=== PATIENT | female | born 2000 | race Caucasian/White ===

== ENCOUNTER 2019-11-02 20:15 | Emergency (ER) | payer OTHER ==
--- NOTE | 2019-11-02 21:04 | ER Document Report ---
ED Medical Screen (RME) - General Chief Complaint: Vaginal Pain Stated Complaint: POSSIBLE ALLERGIC REACTION Time Seen by Provider: 11/02/19 21:02 Mode of Arrival: Ambulatory Information source: Patient Notes: 19-year-old female presented to ED for complaint of vaginal pain and swelling for the last hour. She states she used a vaginal suppository made by [facility] for lubrication. She states she is never used it before. She states that soon after inserting the suppository she started having pain burning and swelling. She states it is very swollen in the area. Patient is alert oriented resp irations regular and unlabored speaking in full sentences. She states she does not smoke cigarettes but she does state she occasionally drinks and does not use any illicit drugs. I have greeted and performed a rapid initial assessment of this patient. A comprehensive ED assessment and evaluation of the patient, analysis of test results and completion of medical decision making process will be conducted by an additional ED providers. - Related Data Allergies/Adverse Reactions: Sulfa (Sulfonamide Antibiotics) Allergy (Unknown, Verified 11/02/19 20:58) Physical Exam - Vital signs Vitals: Temp Pulse Resp BP Pulse Ox 98.1 F 118 H 16 120/87 H 97 11/02/19 20:20 11/02/19 20:20 11/02/19 20:20 11/02/19 20:20 11/02/19 20:20 Course - Vital Signs Vital signs: Temp Pulse Resp BP Pulse Ox 98.1 F 118 H 16 120/87 H 97 11/02/19 20:20 11/02/19 20:20 11/02/19 20:20 11/02/19 20:20 11/02/19 20:20
[2019-11-02 21:43] LABS: APPEARANCE,URINE CLEAR; BILIRUBIN,URINE NEGATIVE (NEGATIVE); COLOR,URINE YELLOW; GLUCOSE, URINE NEGATIVE (NEGATIVE); KETONES,URINE NEGATIVE (NEGATIVE); LEUKOCYTE ESTERASE,URINE TRACE (NEGATIVE); NITRITE,URINE NEGATIVE (NEGATIVE); PROTEIN,URINE NEGATIVE (NEGATIVE); URINE SPECIFIC GRAVITY 1.019; UROBILINOGEN,URINE NEGATIVE mg/dL (<2.0)
--- NOTE | 2019-11-02 22:08 | ER Document Report ---
ED General - General Chief Complaint: Vaginal Pain Stated Complaint: POSSIBLE ALLERGIC REACTION Time Seen by Provider: 11/02/19 21:02 Mode of Arrival: Ambulatory Information source: Patient Notes: francisco blackburn pt comes to ed from home via pov brought by self for c/o sudden onset vaginal burning, redness and swelling. 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 hx of allergy to latex. maddison notes 19-year-old female presented to ED for complaint of vaginal pain and swelling for the last hour. She states she used a vaginal suppository made by [place] for lubrication. She states she is never used it before. She states that soon after inserting the suppository she started having pain burning and swelling. She states it is very swollen in the area. Patient is alert oriented respirations regular and unlabored speaking in full sentences. She states she does not smoke cigarettes but she does state she occasionally drinks and does not use any illicit drugs. 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 She has never had any problems with [place] jelly but believes the suppository had a latex component. TRAVEL OUTSIDE OF THE [place] IN LAST 30 DAYS: No - HPI Onset: Just prior to arrival - Related Data Allergies/Adverse Reactions: Sulfa (Sulfonamide Antibiotics) Allergy (Unknown, Verified 11/02/19 20:58) Home Medications: sertraline Past Medical History - General Information source: Patient - Social History Smoking Status: Former Smoker Cigarette use (# per day): No Chew tobacco use (# tins/day): No Smoking Education Provided: No Frequency of alcohol use: Occasional Drug Abuse: None Lives with: Family Family History: Reviewed & Not Pertinent Patient has suicidal ideation: No Patient has homicidal ideation: No Psychiatric Medical History: Reports: Hx Depression Review of Systems - Review of Systems Constitutional: No symptoms reported EENT: No symptoms reported Cardiovascular: No symptoms reported Respiratory: No symptoms reported Gastrointestinal: No symptoms reported Genitourinary: See HPI, Burning, Other - pudenal rash Female Genitourinary: No symptoms reported Musculoskeletal: No symptoms reported Skin: No symptoms reported Hematologic/Lymphatic: No symptoms reported Neurological/Psychological: No symptoms reported Physical Exam - Vital signs Vitals: Temp Pulse Resp BP Pulse Ox 98.1 F 118 H 16 120/87 H 97 11/02/19 20:20 11/02/19 20:20 11/02/19 20:20 11/02/19 20:20 11/02/19 20:20 - General General appearance: Appears well, Alert - HEENT Head: Normocephalic, Atraumatic Eyes: Normal Pupils: PERRL - Respiratory Respiratory status: No respiratory distress Chest status: Nontender Breath sounds: Normal Chest palpation: Normal - Cardiovascular Rhythm: Regular Heart sounds: Normal auscultation Murmur: No - Abdominal Inspection: Normal Distension: No distension Bowel sounds: Normal Tenderness: Nontender Organomegaly: No organomegaly - Genitourinary External exam: Other - examined with CLINICAL SYSTEMS ANALYST female Oxana is pudendal's with contact dermatitis extending at least 9 cm to the perirectal area. - Back Back: Normal, Nontender - Extremities General upper extremity: Normal inspection, Nontender, Normal color, Normal ROM, Normal temperature General lower extremity: Normal inspection, Nontender, Normal color, Normal ROM, Normal temperature, Normal weight bearing. No: Soraya's sign - Neurological Neuro grossly intact: Yes Cognition: Normal Orientation: AAOx4 [place] Coma Scale Eye Opening: Spontaneous [place] Coma Scale Verbal: Oriented Scarlet Coma Scale Motor: Obeys Commands [place] Coma Scale Total: 15 Speech: Normal Motor strength normal: LUE, RUE, LLE, RLE Sensory: Normal - Psychological Associated symptoms: Normal affect - Skin Skin Temperature: Warm Skin Moisture: Dry Skin Color: Normal Course - Vital Signs Vital signs: Temp Pulse Resp BP Pulse Ox 98.1 F 118 H 16 120/87 H 97 11/02/19 20:59 11/02/19 20:20 11/02/19 20:20 11/02/19 20:20 11/02/19 20:20 - Laboratory Laboratory results interpreted by me: 11/02/19 21:08 Urine Blood MODERATE H Ur Leukocyte Esterase TRACE H Critical Care Note - Critical Care Note Total time excluding time spent on procedures (mins): 60 Discharge - Discharge Clinical Impression: Vaginitis and vulvovaginitis Allergic contact dermatitis Qualifiers: Contact dermatitis trigger: other chemical product Qualified Code(s): L23.5 - Allergic contact dermatitis due to other chemical products Condition: Good Disposition: HOME, SELF-CARE Additional Instructions: Do not apply heat or warm compresses to your private areas. Use cool but not icy cold wet compresses to help alleviate irritated dermatitis skin. Also apply BEAUTY SPECIALIST Lotrimin and hydrocortisone cream to affected skin at least twice to 3 times a day. Take other oral medicines as prescribed. See personal doctor or material crew supervisor if symptoms persist and you may want to use a Band-Aid type K-Y jelly plain onto your skin prior to any use in the future. You may experience some steroid induced depression or excitation or increase in appetite while taking steroids. Prescriptions: Diphenhydramine HCl [Benadryl] 25 mg PO TID 3 Days #1 bottle Dexamethasone [Decadron 4 Mg Tablet] 4 mg PO DAILY 4 Days #4 tablet Famotidine [Pepcid 20 mg Tablet] 20 mg PO BID #12 tablet Forms: Return to Work
[2019-11-02] MEDS ORDERED: CLOTRIMAZOLE/BETAMETHASONE DIP CREAM 15 GM TOP ONE (22:31)
[2019-11-02] MEDS ORDERED: DIPHENHYDRAMINE HCL 50 MG/ML VIAL IM ONE (22:33)
[2019-11-02] MEDS ORDERED: DEXAMETHASONE SOD PHOS INJ 10 MG/1 ML VIAL IM ONE (22:33)
[2019-11-02] MEDS ORDERED: FAMOTIDINE 20 MG TABLET PO ONE (22:34)
[2019-11-02] MEDS ORDERED: DIPHENHYDRAMINE HCL 25 MG/10 ML UDC PO ONE (23:11)
[2019-11-02] MEDS ORDERED: CLOTRIMAZOLE 1% CREAM 15 GM ONE (23:25)
[2019-11-02 23:40] VITALS: BP 127/81
== END 2019-11-02 23:41 | disposition home or self-care (01) ==
LOC: ER 20:15
DX: N76.0 Acute vaginitis (principal); L23.5 Allergic contact dermatitis due to other chemical products; R10.2 Pelvic and perineal pain; Z88.2 Allergy status to sulfonamides; Z87.891 Personal history of nicotine dependence
CPT/HCPCS: 99285; 96372; 81025; 81001; J3490 ×2; J1200; J1100

== ENCOUNTER 2019-11-06 00:22 | Emergency (ER) | payer OTHER ==
--- NOTE | 2019-11-06 01:00 | ER Document Report ---
ED GI/ - General Chief Complaint: Lower Abdominal Pain Stated Complaint: ABDOMINAL PAIN Time Seen by Provider: 11/06/19 00:53 Primary Care Provider: DIDIER ALFONSO DO [Primary Care Provider] - Follow up as needed Notes: Otherwise healthy 19-year-old female presenting to the emergency department with chief complaint of intermittent low abdominal pain that has been ongoing for 2 weeks. Patient reports associated nausea and lack of appetite. Patient reports she has a Nexplanon control device in her arm but she thinks she could be . Patient has had one episode of vomiting today, she reports excessive nausea. She states the pain is in the low abdomen and radiates back and forth from the right to left side. She describes it as quick sharp stabbing pains that resolve on their own. She denies any constipation. She was recently seen here and treated for an allergic reaction to a vaginal lubricant. TRAVEL OUTSIDE OF THE [place] IN LAST 30 DAYS: No - Related Data Allergies/Adverse Reactions: Sulfa (Sulfonamide Antibiotics) Allergy (Unknown, Verified 11/02/19 20:58) Home Medications: famotidine, steroid, setraline, Past Medical History - General Information source: Patient - Social History Smoking Status: Current Every Day Smoker Frequency of alcohol use: None Drug Abuse: None Family History: Reviewed & Not Pertinent Patient has homicidal ideation: No Psychiatric Medical History: Reports: Hx Anxiety, Hx Depression, Hx Post Traumatic Stress Disorder Surgical Hx: Negative - Immunizations Immunizations up to date: Yes Review of Systems - Review of Systems Constitutional: denies: Fever Gastrointestinal: Abdominal pain, Nausea, Vomiting - X1 Genitourinary: denies: Dysuria, Frequency, Flank pain Female Genitourinary: denies: Vaginal discharge -: Yes All other systems reviewed and negative Physical Exam - Vital signs Vitals: Temp Pulse Resp BP Pulse Ox 97.9 F 81 24 H 139/89 H 98 11/06/19 00:29 11/06/19 00:29 11/06/19 00:29 11/06/19 00:29 11/06/19 00:29 - Notes Notes: PHYSICAL EXAMINATION: GENERAL: Well-appearing, well-nourished and in no acute distress. HEAD: Atraumatic, normocephalic. EYES: Pupils equal round and reactive to light, extraocular movements intact, conjunctiva are normal. ENT: Nares patent, oropharynx clear without exudates. Moist mucous membranes. NECK: Normal range of motion, supple without lymphadenopathy LUNGS: Breath sounds clear to auscultation bilaterally and equal. No wheezes rales or rhonchi. HEART: Regular rate and rhythm without murmurs ABDOMEN: Soft, nontender, nondistended abdomen. No guarding, no rebound. No masses appreciated. Female : Normal external genitalia. Thin white vaginal discharge noted. No bleeding. Cervix closed, no cervical motion tenderness or adnexal tenderness. Musculoskeletal: Normal range of motion, no pitting or edema. No cyanosis. NEUROLOGICAL: Cranial nerves grossly intact. Normal speech, normal gait. Normal sensory, motor exams PSYCH: Normal mood, normal affect. SKIN: Warm, Dry, normal turgor, no rashes or lesions noted. Course - Re-evaluation Re-evalutation: Laboratory 11/06/19 11/06/19 11/06/19 01:05 02:00 02:00 WBC 14.7 H RBC 5.01 Hgb 14.8 Hct 43.3 MCV 87 MCH 29.6 MCHC 34.2 RDW 13.6 Plt Count 319 Lymph % (Auto) 22.4 Williams % (Auto) 8.4 Eos % (Auto) 0.1 Baso % (Auto) 0.2 Absolute Neuts (auto) 10.1 H Absolute Lymphs (auto) 3.3 Absolute Monos (auto) 1.2 Absolute Eos (auto) 0.0 Absolute Basos (auto) 0.0 Seg Neutrophils % 68.9 Sodium 139.2 Potassium 3.8 Chloride 108 H Carbon Dioxide 22 Anion Gap 9 BUN 15 Creatinine 0.58 Est GFR ( Amer) > 60 Est GFR (MDRD) Non-Af > 60 Glucose 175 H Calcium 9.4 Total Bilirubin 0.3 Direct Bilirubin 0.0 Neonat Total Bilirubin Not Reportable Neonat Direct Bilirubin Not Reportable Neonat Indirect Bili Not Reportable AST 22 ALT 14 Alkaline Phosphatase 88 Total Protein 7.6 Albumin 4.1 Lipase 116.6 Urine Color YELLOW Urine Appearance CLEAR Urine pH 6.0 Ur Specific [place] 1.014 Urine Protein NEGATIVE Urine Glucose (UA) NEGATIVE Urine Ketones NEGATIVE Urine Blood MODERATE H Urine Nitrite (Reflex) NEGATIVE Urine Bilirubin NEGATIVE Urine Urobilinogen NEGATIVE Leukocyte Esterase Rfl LARGE H Urine RBC (Auto) 6 U Hyaline Cast (Auto) 1 Urine WBC (Reflex) 10 Squamous Epi Cells Auto 1 Urine Mucus (Auto) RARE Urine Ascorbic Acid NEGATIVE Urine HCG, Qual NEGATIVE Trichomonas (Wet Prep) Vaginal WBC Vaginal RBC Vaginal Yeast Chlamydia DNA (PCR) N.gonorrhoeae DNA (PCR) 11/06/19 11/06/19 02:00 02:00 WBC RBC Hgb Hct MCV MCH MCHC RDW Plt Count Lymph % (Auto) Williams % (Auto) Eos % (Auto) Baso % (Auto) Absolute Neuts (auto) Absolute Lymphs (auto) Absolute Monos (auto) Absolute Eos (auto) Absolute Basos (auto) Seg Neutrophils % Sodium Potassium Chloride Carbon Dioxide Anion Gap BUN Creatinine Est GFR ( Amer) Est GFR (MDRD) Non-Af Glucose Calcium Total Bilirubin Direct Bilirubin Neonat Total Bilirubin Neonat Direct Bilirubin Neonat Indirect Bili AST ALT Alkaline Phosphatase Total Protein Albumin Lipase Urine Color Urine Appearance Urine pH Ur Specific [place] Urine Protein Urine Glucose (UA) Urine Ketones Urine Blood Urine Nitrite (Reflex) Urine Bilirubin Urine Urobilinogen Leukocyte Esterase Rfl Urine RBC (Auto) U Hyaline Cast (Auto) Urine WBC (Reflex) Squamous Epi Cells Auto Urine Mucus (Auto) Urine Ascorbic Acid Urine HCG, Qual Trichomonas (Wet Prep) NO TRICHOMONAS SEEN Vaginal WBC 4+ WBCS SEEN Vaginal RBC FEW RBCS SEEN Vaginal Yeast NO YEAST SEEN Chlamydia DNA (PCR) NOT DETECTED N.gonorrhoeae DNA (PCR) NOT DETECTED Patient appears well, nontoxic. Vital signs within normal limits. Vaginal exam unremarkable. Patient does have an elevated white blood count however she is on Decadron tablets daily for her recent allergic reaction. Her abdomen is soft and nontender. She does have some white blood cells in her urine, we will send this for culture. Wet mount was negative. - Vital Signs Vital signs: Temp Pulse Resp BP Pulse Ox 98.2 F 64 16 112/65 98 11/06/19 02:37 11/06/19 02:37 11/06/19 02:37 11/06/19 02:37 11/06/19 02:37 - Laboratory Result Diagrams: 11/06/19 02:00 11/06/19 02:00 Laboratory results interpreted by me: 11/06/19 11/06/19 11/06/19 01:05 02:00 02:00 WBC 14.7 H Absolute Neuts (auto) 10.1 H Chloride 108 H Glucose 175 H Urine Blood MODERATE H Leukocyte Esterase Rfl LARGE H Discharge - Discharge Clinical Impression: Abdominal pain Qualifiers: Abdominal location: lower abdomen, unspecified Qualified Code(s): R10.30 - Lower abdominal pain, unspecified Condition: Stable Disposition: HOME, SELF-CARE Additional Instructions: You have been seen in the Emergency Department (ED) for abdominal pain. Your evaluation did not identify a clear cause of your symptoms but was generally reassuring. Please follow up with your doctor as soon as possible regarding today's emergent visit and the symptoms that are bothering you. Return to the ED if your abdominal pain worsens or fails to improve, you develop bloody vomiting, bloody diarrhea, you are unable to tolerate fluids due to vomiting, fever greater than 101, or other symptoms that concern you. Prescriptions: Ondansetron [Zofran Odt 4 mg Tablet] 1 - 2 tab PO Q4H PRN #15 tab.rapdis PRN Reason: For Nausea/Vomiting Referrals: DIDIER ALFONSO DO [Primary Care Provider] - Follow up as needed
[2019-11-06] MEDS ORDERED: ONDANSETRON 4 MG TAB.RAPDIS PO ONE (01:20)
[2019-11-06 01:35] LABS: APPEARANCE,URINE CLEAR; BILIRUBIN,URINE NEGATIVE (NEGATIVE); COLOR,URINE YELLOW; GLUCOSE, URINE NEGATIVE (NEGATIVE); KETONES,URINE NEGATIVE (NEGATIVE); PROTEIN,URINE NEGATIVE (NEGATIVE); URINE SPECIFIC GRAVITY 1.014; UROBILINOGEN,URINE NEGATIVE mg/dL (<2.0)
[2019-11-06 02:30] LABS: RBCS (WET MOUNT) FEW RBCS SEEN; T.VAGINALIS (WET MOUNT) NO TRICHOMONAS SEEN; WBCS (WET MOUNT) 4+ WBCS SEEN; YEAST (WET MOUNT) NO YEAST SEEN
[2019-11-06 02:33] LABS: ABSOLUTE LYMPHOCYTES (AUTO) 3.3 10^3/uL (0.5-4.7); ABSOLUTE MONOCYTES (AUTO) 1.2 10^3/uL (0.1-1.4); ABSOLUTE NEUT (AUTO) 10.1 10^3/uL (1.7-8.2); BASOPHILS % (AUTO) 0.2 % (0-2); EOSINOPHILS % (AUTO) 0.1 % (0-6); HEMATOCRIT 43.3 % (36.0-47.0); HEMOGLOBIN 14.8 g/dL (12.0-15.5); LYMPHOCYTES % (AUTO) 22.4 % (13-45); MEAN CORPUSCULAR HEMOGLOBIN 29.6 pg (27.0-33.4); MEAN CORPUSCULAR HGB CONC 34.2 g/dL (32.0-36.0); MEAN CORPUSCULAR VOLUME 87 fl (80-97); MONOCYTES % (AUTO) 8.4 % (3-13); PLATELET COUNT 319 10^3/uL (150-450); RED BLOOD COUNT 5.01 10^6/uL (3.72-5.28); RED CELL DISTRIBUTION WIDTH 13.6 % (11.5-14.0); SEGMENTED NEUTROPHILS % (AUTO) 68.9 % (42-78); TOTAL CELLS COUNTED % (AUTO) 100 %; WHITE BLOOD COUNT 14.7 10^3/uL (4.0-10.5)
[2019-11-06 02:39] VITALS: BP 112/65
[2019-11-06 02:46] LABS: ALBUMIN 4.1 g/dL (3.5-5.0); ALKALINE PHOSPHATASE 88 U/L (38-126); ANION GAP 9 (5-19); ASPARTATE AMINO TRANSFERASE 22 U/L (14-36); BILIRUBIN,TOTAL 0.3 mg/dL (0.2-1.3); BLOOD UREA NITROGEN 15 mg/dL (7-20); CALCIUM 9.4 mg/dL (8.4-10.2); CARBON DIOXIDE 22 mmol/L (22-30); CHLORIDE 108 mmol/L (98-107); GLUCOSE 175 mg/dL (75-110); POTASSIUM 3.8 mmol/L (3.6-5.0); TOTAL PROTEIN 7.6 g/dL (6.3-8.2)
[2019-11-06] MEDS ORDERED: ONDANSETRON ODT 4 MG TAB (6 TAB/ER DISP) PO PRN (03:31)
[2019-11-06 04:03] LABS: CHLAM PCR NOT DETECTED (NOT DETECT)
== END 2019-11-06 03:39 | disposition home or self-care (01) ==
LOC: ER 00:22
DX: R10.30 Lower abdominal pain, unspecified (principal); R11.2 Nausea with vomiting, unspecified; F17.200 Nicotine dependence, unspecified, uncomplicated; Z88.2 Allergy status to sulfonamides
CPT/HCPCS: 99284; 36415; 87086; 87210; 83690; 85025; 81025; 80053; 81001; 87491; 87591; S0119

== ENCOUNTER 2020-01-18 00:10 | Emergency (ER) | payer OTHER ==
[2020-01-18] MEDS ORDERED: CYCLOBENZAPRINE HCL 10 MG TABLET PO ONE (02:23)
--- NOTE | 2020-01-18 02:25 | ER Document Report ---
HPI - HPI Time Seen by Provider: 01/18/20 02:16 Pain Level: 4 Context: About a week ago and she has been using crutches and a knee immobilizer. She ended up hitting her hip on a door and ended up falling down. She is able to walk. He says she has pain from her back that radiates down to her right leg. - ROS Systems Reviewed and Negative: Yes All other systems reviewed and negative - CONSTITUTIONAL Constitutional: DENIES: Fever, Chills - CARDIOVASCULAR Cardiovascular: DENIES: Chest pain - RESPIRATORY Respiratory: DENIES: Trouble Breathing, Coughing - GASTROINTESTINAL Gastrointestinal: DENIES: Abdominal Pain, Nausea, Patient vomiting - URINARY Urinary: DENIES: Dysuria, Urgency, Frequency - REPRODUCTIVE LMP: on BC Reproductive: DENIES: : - MUSCULOSKELETAL Musculoskeletal: REPORTS: Extremity pain - right posterior hip - DERM Skin Color: Normal Skin Problems: None Past Medical History - Social History Smoking Status: Current Every Day Smoker Frequency of alcohol use: Rare Drug Abuse: None Family History: Reviewed & Not Pertinent Psychiatric Medical History: Reports: Hx Anxiety, Hx Depression, Hx Post Traumatic Stress Disorder - Immunizations Immunizations up to date: Yes Vertical Provider Document - CONSTITUTIONAL Agree With Documented VS: Yes Exam Limitations: No Limitations General Appearance: No Apparent Distress - INFECTION CONTROL TRAVEL OUTSIDE OF THE [place] IN LAST 30 DAYS: No - HEENT HEENT: Atraumatic, Normocephalic, PERRLA - NECK Neck: Normal Inspection - RESPIRATORY Respiratory: Breath Sounds Normal, No Respiratory Distress - CARDIOVASCULAR Cardiovascular: Regular Rate, Regular Rhythm Pulses: Normal: Posterior tibial, Dorsalis pedis - MUSCULOSKELETAL/EXTREMETIES Musculoskeletal/Extremeties: FROM, Tender - right posterior hip; right knee, No Edema, Eccymosis - right knee - NEURO Level of Consciousness: Awake, Alert, Appropriate Motor/Sensory: No Motor Deficit, No Sensory Deficit - DERM Integumentary: Warm, Dry, No Rash Course - Re-evaluation Re-evalutation: 01/18/20 Patient was able to walk for me with no difficulty. She was able to bear weight. The likelihood of her having a hip fracture is very unlikely. We will hold off on x-rays at this time. We will give her a dose of Flexeril and orthopedics for her knee pain that she sustained a week ago. Advised her to make sure that she takes her knee out of her brace and exercises her knee. She is in agreement with this plan. Capillary refill less than 3 seconds. Dorsalis pedis and posterior tibial pulses 2+. No vascular compromise noted. Follow-up precautions were given. Verbal discharge instructions were given to the patient. They verbalized understanding. They are stable for discharge. - Vital Signs Vital signs: Temp Pulse Resp BP Pulse Ox 98.3 F 121 H 16 138/82 H 97 01/18/20 02:15 01/18/20 00:31 01/18/20 00:31 01/18/20 00:31 01/18/20 00:31 Discharge - Discharge Clinical Impression: Right hip pain Condition: Stable Disposition: HOME, SELF-CARE Additional Instructions: You were seen today in the emergency department for right hip pain. You most likely do not have a fracture. If you had a fracture, you would not be able to walk. Please continue to use her crutches to help with your knee. Please make sure that you get a referral for physical therapy by her primary care provider to help you with stretching your knee. You can take your leg out of your brace more than just at night just to help exercise your knee. Continue your follow- up appointment with orthopedics. Prescriptions: Cyclobenzaprine HCl [Flexeril 10 mg Tablet] 10 mg PO TIDP PRN #15 tab PRN Reason: Referrals: DIDIER ALFONSO DO [Primary Care Provider] - Follow up in 3-5 days
[2020-01-18 02:28] VITALS: BP 114/87
== END 2020-01-18 02:29 | disposition home or self-care (01) ==
LOC: ER 00:10
DX: M25.551 Pain in right hip (principal); W10.9XXA Fall (on) (from) unspecified stairs and steps, initial encounter; F17.200 Nicotine dependence, unspecified, uncomplicated
CPT/HCPCS: 99283

== ENCOUNTER 2020-02-27 10:13 | Emergency (ER) | payer OTHER ==
[2020-02-27] MEDS ORDERED: LIDOCAINE 2% VISCOUS SOLN 15 ML UDCUP PO ONE (10:58)
[2020-02-27] MEDS ORDERED: MAG HYDROX/AL HYDROX/SIMETH SUSP 30 ML UDCUP PO ONE (10:58)
[2020-02-27] MEDS ORDERED: METOCLOPRAMIDE HCL ORAL SOLN 10 MG/10 ML UDCUP PO ONE (10:58)
--- NOTE | 2020-02-27 10:58 | ER Document Report ---
ED Medical Screen (RME) - General Stated Complaint: BLOODY STOOLS/ACID REFLUX/ABDOMINAL PAIN Time Seen by Provider: 02/27/20 10:50 Primary Care Provider: DIDIER ALFONSO DO [Primary Care Provider] - Follow up as needed Notes: Patient is a 20-year-old female presents emergency department with a chief complaint of abdominal pain. Patient reports that about 1 week ago developing right upper quadrant pain that gets worse after eating. Patient also reports severe acid reflux. Patient reports a burning sensation from her stomach up into her mouth. Patient reports also having generalized abdominal pain although it is worse in the right upper quadrant. Patient states this morning she also noticed some blood in her stool. States that time she does have to strain when having a bowel movement. States the stool soft this morning. TRAVEL OUTSIDE OF THE [place] IN LAST 30 DAYS: No - Related Data Allergies/Adverse Reactions: Sulfa (Sulfonamide Antibiotics) Allergy (Unknown, Verified 02/27/20 10:47) latex Allergy (Verified 02/27/20 10:47) Past Medical History Psychiatric Medical History: Reports: Hx Anxiety, Hx Depression, Hx Post Traumatic Stress Disorder - Immunizations Immunizations up to date: Yes Physical Exam - Vital signs Vitals: Temp Pulse Resp BP Pulse Ox 99.0 F 86 16 123/81 98 02/27/20 10:42 02/27/20 10:42 02/27/20 10:42 02/27/20 10:42 02/27/20 10:42 - Abdominal Inspection: Normal Distension: No distension Bowel sounds: Normal Tenderness: Nontender Organomegaly: No organomegaly Course - Re-evaluation Re-evalutation: 02/27/20 10:58 Initiate basic labs as well as a right upper quadrant ultrasound to rule out gallbladder problems. I have greeted and performed a rapid initial assessment of this patient. A comprehensive ED assessment and evaluation of the patient, analysis of test results and completion of the medical decision making process will be conducted by additional ED providers. - Vital Signs Vital signs: Temp Pulse Resp BP Pulse Ox 99.0 F 86 16 123/81 98 02/27/20 10:42 02/27/20 10:42 02/27/20 10:42 02/27/20 10:42 02/27/20 10:42 Doctor's Discharge - Discharge Referrals: SBAITI,TAMEEM, DO [Primary Care Provider] - Follow up as needed
--- NOTE | 2020-02-27 12:06 | RADIOLOGY REPORT (SQ) ---
EXAM DESCRIPTION: U/S ABDOMEN LIMITED W/O DOP IMAGES COMPLETED DATE/TIME: 02/27/2020 11:54 am REASON FOR STUDY: ruq PAIN COMPARISON: None. TECHNIQUE: Dynamic and static grayscale images acquired of the abdomen and recorded on PACS. Additio nal selected color Doppler and spectral images recorded. LIMITATIONS: None. FINDINGS: PANCREAS: Obscured by overlying bowel gas. LIVER: Heterogeneous increased echogenicity with decreased visualization of the portal triads. No fo som lesions identified. No intrahepatic ductal dilation. Liver measures 17.5 cm. LIVER VASCULATURE: Normal directional flow of the main portal vein and hepatic veins. GALLBLADDER: No stones. Normal wall thickness. No pericholecystic fluid. ULTRASOUND-DETECTED FIERRO'S SIGN: Negative. INTRAHEPATIC DUCTS AND COMMON DUCT: CBD and intrahepatic ducts normal caliber. No filling defects. INFERIOR VENA CAVA: Normal flow. AORTA: No aneurysm. RIGHT KIDNEY: Normal size measuring 11.3 cm. Normal echogenicity. No solid or suspicious masses. No hydronephrosis. No calcifications. PERITONEAL AND RIGHT PLEURAL SPACE: No ascites or effusions. OTHER: No other significant findings. IMPRESSION: Hepatic steatosis. Otherwise, unremarkable right upper quadrant ultrasound as visualized. TECHNICAL DOCUMENTATION: JOB ID: [id number] 2010 [employer]- All Rights Reserved Reading location - IP/workstation name: [email or web address]
[2020-02-27 12:50] LABS: APPEARANCE,URINE SLIGHTLY-CLOUDY; BILIRUBIN,URINE NEGATIVE (NEGATIVE); COLOR,URINE YELLOW; GLUCOSE, URINE NEGATIVE (NEGATIVE); KETONES,URINE NEGATIVE (NEGATIVE); LEUKOCYTE ESTERASE,URINE LARGE (NEGATIVE); NITRITE,URINE NEGATIVE (NEGATIVE); PROTEIN,URINE NEGATIVE (NEGATIVE); UROBILINOGEN,URINE NEGATIVE mg/dL (<2.0)
[2020-02-27 13:10] LABS: ABSOLUTE EOSINOPHILS # (AUTO) 0.1 10^3/uL (0.0-0.6); ABSOLUTE LYMPHOCYTES (AUTO) 2.1 10^3/uL (0.5-4.7); ABSOLUTE MONOCYTES (AUTO) 0.5 10^3/uL (0.1-1.4); BASOPHILS % (AUTO) 0.5 % (0-2); EOSINOPHILS % (AUTO) 1.6 % (0-6); HEMATOCRIT 45.1 % (36.0-47.0); HEMOGLOBIN 15.6 g/dL (12.0-15.5); LYMPHOCYTES % (AUTO) 26.6 % (13-45); MEAN CORPUSCULAR HEMOGLOBIN 29.6 pg (27.0-33.4); MEAN CORPUSCULAR HGB CONC 34.5 g/dL (32.0-36.0); MEAN CORPUSCULAR VOLUME 86 fl (80-97); MONOCYTES % (AUTO) 6.6 % (3-13); PLATELET COUNT 346 10^3/uL (150-450); RED BLOOD COUNT 5.25 10^6/uL (3.72-5.28); RED CELL DISTRIBUTION WIDTH 13.7 % (11.5-14.0); SEGMENTED NEUTROPHILS % (AUTO) 64.7 % (42-78); TOTAL CELLS COUNTED % (AUTO) 100 %; WHITE BLOOD COUNT 7.7 10^3/uL (4.0-10.5)
[2020-02-27 13:11] LABS: ALBUMIN 4.5 g/dL (3.5-5.0); ALKALINE PHOSPHATASE 90 U/L (38-126); ANION GAP 7 (5-19); ASPARTATE AMINO TRANSFERASE 47 U/L (14-36); BILIRUBIN,DIRECT 0.3 mg/dL (0.0-0.4); BILIRUBIN,TOTAL 0.7 mg/dL (0.2-1.3); BLOOD UREA NITROGEN 10 mg/dL (7-20); CARBON DIOXIDE 23 mmol/L (22-30); CHLORIDE 107 mmol/L (98-107); GLUCOSE 95 mg/dL (75-110); POTASSIUM 4.5 mmol/L (3.6-5.0); TOTAL PROTEIN 7.7 g/dL (6.3-8.2)
--- NOTE | 2020-02-27 14:06 | ER Document Report ---
ED General - General Chief Complaint: Upper Abdominal Pain Stated Complaint: BLOODY STOOLS/ACID REFLUX/ABDOMINAL PAIN Time Seen by Provider: 02/27/20 10:50 Primary Care Provider: DIDIER ALFONSO DO [NO LOCAL MD] - Follow up as needed Mode of Arrival: Ambulatory Information source: Patient TRAVEL OUTSIDE OF THE [place] IN LAST 30 DAYS: No - HPI Notes: Patient presents with complaints of abdominal pain and rectal bleeding. She sta debra she has had the abdominal pain for several days. She states that she has different pains in the abdomen. One is a burning sensation that is in the upper part of the abdomen. The other is a crampy sensation that radiates across both lower parts of her abdomen. Nothing has made the crampy sensation better or worse. The burning sensation got better after a GI cocktail here and has been worse with eating. She states she does take Tums and occasionally this will make it better as well but it only last 2 to 3 hours. She states she did have one episode of blood in her stool this morning. No dark tarry stool but there was some blood in the water and on top of the brown stool. She states she is also had some loose stool. No vomiting but some mild nausea. Patient denies any previous history of abdominal problems or previous surgeries. The pain is been mild to moderate. She denies vaginal symptoms or urinary symptoms. - Related Data Allergies/Adverse Reactions: Sulfa (Sulfonamide Antibiotics) Allergy (Unknown, Verified 02/27/20 10:47) latex Allergy (Verified 02/27/20 10:47) Past Medical History - General Information source: Patient - Social History Smoking Status: Current Every Day Smoker Frequency of alcohol use: Occasional Drug Abuse: None Family History: Reviewed & Not Pertinent Patient has homicidal ideation: No Psychiatric Medical History: Reports: Hx Anxiety, Hx Depression, Hx Post Trau matic Stress Disorder - Immunizations Immunizations up to date: Yes Review of Systems - Review of Systems Constitutional: denies: Chills, Fever Cardiovascular: denies: Chest pain, Palpitations Respiratory: denies: Cough, Short of breath -: Yes All other systems reviewed and negative Physical Exam - Vital signs Vitals: Temp Pulse Resp BP Pulse Ox 99.0 F 86 16 123/81 98 02/27/20 10:42 02/27/20 10:42 02/27/20 10:42 02/27/20 10:42 02/27/20 10:42 Interpretation: Normal - General General appearance: Appears well, Alert - HEENT Head: Normocephalic, Atraumatic Eyes: Normal Pupils: PERRL - Respiratory Respiratory status: No respiratory distress Chest status: Nontender Breath sounds: Normal Chest palpation: Normal - Cardiovascular Rhythm: Regular Heart sounds: Normal auscultation Murmur: No - Abdominal Inspection: Normal Distension: No distension Bowel sounds: Normal Tenderness: Tender - Patient is some mild tenderness to palpation of the lower abdomen bilaterally. No surgical abdominal signs. Organomegaly: No organomegaly - Back Back: Normal, Nontender - Extremities General upper extremity: Normal inspection, Nontender, Normal color, Normal ROM, Normal temperature General lower extremity: Normal inspection, Nontender, Normal color, Normal ROM, Normal temperature, Normal weight bearing. No: Soraya's sign - Neurological Neuro grossly intact: Yes Cognition: Normal Orientation: AAOx4 Rew Coma Scale Eye Opening: Spontaneous Scarlet Coma Scale Verbal: Oriented Scarlet Coma Scale Motor: Obeys Commands Rew Coma Scale Total: 15 Speech: Normal Motor strength normal: LUE, RUE, LLE, RLE Sensory: Normal - Psychological Associated symptoms: Normal affect, Normal mood - Skin Skin Temperature: Warm Skin Moisture: Dry Skin Color: Normal Course - Re-evaluation Re-evalutation: 02/27/20 14:17 Patient reexamined. Patient has a nonsurgical abdomen still. Vitals are stable. Laboratory values are unremarkable. However she does have an equivocal urinalysis. This in combination with the lower abdominal cramping suggest possible urinary tract infection. She will be treated with antibiotics. As for the patient's "blood" in the stool patient does admitted to having red soup as well as "fire" Doritos. She was heme-negative on exam and it seems that her red stool was most likely secondary to food intake and not blood. - Vital Signs Vital signs: Temp Pulse Resp BP Pulse Ox 99.0 F 86 16 123/81 98 02/27/20 10:42 02/27/20 10:42 02/27/20 10:42 02/27/20 10:42 02/27/20 10:42 - Laboratory Result Diagrams: 02/27/20 12:18 02/27/20 12:18 Laboratory results interpreted by me: 0902/27/20 02/27/20 12:18 12:18 12:18 Hgb 15.6 H AST 47 H Urine Blood SMALL H Ur Leukocyte Esterase LARGE H - Diagnostic Test Radiology reviewed: Image reviewed, Reports reviewed Discharge - Discharge Clinical Impression: UTI (urinary tract infection) Qualifiers: Urinary tract infection type: acute cystitis Hematuria presence: with hematuria Qualified Code(s): N30.01 - Acute cystitis with hematuria GERD (gastroesophageal reflux disease) Qualifiers: Esophagitis presence: esophagitis presence not specified Qualified Code(s): K21.9 - Gastro-esophageal reflux disease without esophagitis Condition: Stable Disposition: HOME, SELF-CARE Instructions: Urinary Tract Infection ([facility]) Additional Instructions: Please call a primary provider as soon as possible to arrange follow up Prescriptions: Sucralfate [Carafate Susp 1 Gm/10 Ml Udcup] 1 gm PO Q6 14 Days #200 ml Nitrofurantoin Monohyd/M-Cryst [Macrobid 100 mg Capsule] 100 mg PO BID 5 Days #10 cap Forms: Return to Work Referrals: DIDIER ALFONSO DO [NO LOCAL MD] - Follow up in 3-5 days
[2020-02-27] MEDS ORDERED: LOPERAMIDE HCL 2 MG CAPSULE PO ONE (14:40)
[2020-02-27 14:47] VITALS: BP 130/83
== END 2020-02-27 14:47 | disposition home or self-care (01) ==
LOC: ER 10:13
DX: N30.01 Acute cystitis with hematuria (principal); K21.9 Gastro-esophageal reflux disease without esophagitis; K76.0 Fatty (change of) liver, not elsewhere classified; R19.4 Change in bowel habit; R11.0 Nausea; Z88.2 Allergy status to sulfonamides; Z91.040 Latex allergy status; F17.200 Nicotine dependence, unspecified, uncomplicated
CPT/HCPCS: 99284; 36415; 83690; 85025; 82270; 81025; 80053; 81001; 76705; J3490

== ENCOUNTER 2020-05-29 01:50 | Emergency (ER) | payer OTHER ==
[2020-05-29 06:37] LABS: APPEARANCE,URINE CLEAR; BILIRUBIN,URINE NEGATIVE (NEGATIVE); COLOR,URINE YELLOW; GLUCOSE, URINE NEGATIVE (NEGATIVE); KETONES,URINE NEGATIVE (NEGATIVE); LEUKOCYTE ESTERASE,URINE NEGATIVE (NEGATIVE); NITRITE,URINE NEGATIVE (NEGATIVE); PROTEIN,URINE 30 mg/dL (NEGATIVE); URINE SPECIFIC GRAVITY 1.026; UROBILINOGEN,URINE NEGATIVE mg/dL (<2.0)
[2020-05-29 06:37] LABS: ABSOLUTE EOSINOPHILS # (AUTO) 0.2 10^3/uL (0.0-0.6); ABSOLUTE LYMPHOCYTES (AUTO) 2.6 10^3/uL (0.5-4.7); ABSOLUTE MONOCYTES (AUTO) 0.6 10^3/uL (0.1-1.4); ABSOLUTE NEUT (AUTO) 5.1 10^3/uL (1.7-8.2); BASOPHILS % (AUTO) 0.5 % (0-2); EOSINOPHILS % (AUTO) 1.9 % (0-6); HEMOGLOBIN 15.3 g/dL (12.0-15.5); LYMPHOCYTES % (AUTO) 31.1 % (13-45); MEAN CORPUSCULAR HEMOGLOBIN 29.1 pg (27.0-33.4); MEAN CORPUSCULAR VOLUME 86 fl (80-97); MONOCYTES % (AUTO) 6.6 % (3-13); PLATELET COUNT 377 10^3/uL (150-450); RED BLOOD COUNT 5.24 10^6/uL (3.72-5.28); RED CELL DISTRIBUTION WIDTH 13.7 % (11.5-14.0); SEGMENTED NEUTROPHILS % (AUTO) 59.9 % (42-78); TOTAL CELLS COUNTED % (AUTO) 100 %; WHITE BLOOD COUNT 8.5 10^3/uL (4.0-10.5)
[2020-05-29 07:26] LABS: ALBUMIN 4.2 g/dL (3.5-5.0); ANION GAP 12 (5-19); BLOOD UREA NITROGEN 16 mg/dL (7-20); CARBON DIOXIDE 23 mmol/L (22-30); CHLORIDE 106 mmol/L (98-107); GLUCOSE 118 mg/dL (75-110); POTASSIUM 4.3 mmol/L (3.6-5.0)
[2020-05-29 07:27] LABS: ALKALINE PHOSPHATASE 85 U/L (38-126); ASPARTATE AMINO TRANSFERASE 39 U/L (14-36); BILIRUBIN,DIRECT 0.2 mg/dL (0.0-0.4); BILIRUBIN,TOTAL 0.5 mg/dL (0.2-1.3); TOTAL PROTEIN 7.6 g/dL (6.3-8.2)
[2020-05-29] MEDS ORDERED: MAG HYDROX/AL HYDROX/SIMETH SUSP 30 ML UDCUP PO ONE ×2 (07:45→08:00)
[2020-05-29] MEDS ORDERED: LIDOCAINE 2% VISCOUS SOLN 15 ML UDCUP PO ONE ×2 (07:45→08:00)
[2020-05-29] MEDS ORDERED: METOCLOPRAMIDE HCL ORAL SOLN 10 MG/10 ML UDCUP PO ONE ×2 (07:45→08:00)
--- NOTE | 2020-05-29 07:48 | ER Document Report ---
ED GI/ - General Chief Complaint: Abdominal Pain Stated Complaint: ABDOMINAL PAIN Time Seen by Provider: 05/29/20 07:38 Notes: HPI: 20-year-old female who states a few months of some intermittent epigastric discomfort worse over the last 2 days. She states she was seen here recently and had an ultrasound that was unremarkable. She was not put on a PPI. She denies any radiation of the pain, nausea without vomiting. No diarrhea. No low er abdominal pain or dysuria. Patient states she has not had a menstrual period for around 3 years secondary to control. No fevers, cough, shortness of breath. ROS: See HPI All other review of systems reviewed and otherwise negative Reviewed vital signs and nursing note as charted by RN. PHYSICAL EXAM: CONSTITUTIONAL: Alert and oriented and responds appropriately to questions. Well-appearing; well-nourished HEAD: Normocephalic; atraumatic EYES: PERRL; Conjunctivae clear, sclerae non-icteric ENT: Normal nose; no rhinorrhea; moist mucous membranes; pharynx without lesions noted NECK: Supple without meningismus; non-tender; no cervical lymphadenopathy, no masses CARD: Regular rate and rhythm; no murmurs; symmetric distal pulses RESP: Normal chest excursion without splinting or tachypnea; breath sounds clear and equal bilaterally; no wheezes, no rhonchi, no rales ABD/GI: Normal bowel sounds; non-distended; soft, mild tenderness to the epigastric region with no palpable masses, rebound or guarding. No lower abdominal tenderness BACK: The back appears normal and is non-tender to palpation EXT: Normal ROM in all joints; non-tender to palpation; no edema SKIN: No acute lesions noted NEURO: CN 2-12 intact; 5/5 bilateral upper and lower extremity strength with se nsation intact to light touch PSYCH: The patient's mood and manner are appropriate. Grooming and personal hygiene are appropriate. TRAVEL OUTSIDE OF THE [place] IN LAST 30 DAYS: No - Related Data Allergies/Adverse Reactions: Sulfa (Sulfonamide Antibiotics) Allergy (Unknown, Verified 02/27/20 10:47) latex Allergy (Verified 02/27/20 10:47) Past Medical History - Social History Smoking Status: Unknown if Ever Smoked Family History: Reviewed & Not Pertinent Psychiatric Medical History: Reports: Hx Anxiety, Hx Depression, Hx Post Traumatic Stress Disorder - Immunizations Immunizations up to date: Yes Physical Exam - Vital signs Vitals: Temp Pulse BP Pulse Ox 98.1 F 87 102/76 98 05/29/20 05:46 05/29/20 05:46 05/29/20 05:46 05/29/20 05:46 Course - Re-evaluation Re-evalutation: 05/29/20 07:48 Given the above history and physical with the previous ultrasound that showed no gallstones, I will evaluate for the possibility of pancreatitis, transaminitis, or electrolyte disturbance. I will most likely start the patient on an antacid medication with outpatient referral to a washer carcass for endoscopy. 05/29/20 09:33 Labs as recorded. Exam improved. Still no lower abdominal tenderness. I will have the patient start a PPI medication and follow-up with gastroenterology. Strict return precautions have been explained. - Vital Signs Vital signs: Temp Pulse Resp BP Pulse Ox 98.1 F 87 102/76 98 05/29/20 05:46 05/29/20 05:46 05/29/20 05:46 05/29/20 05:46 - Laboratory Results Result Diagrams: 05/29/20 02:20 05/29/20 02:20 Laboratory Results Interpreted: 05/29/20 05/29/20 02:20 03:45 Glucose 118 H AST 39 H Urine Protein 30 H Critical Laboratory Results Reviewed: No Critical Results - Radiology Results Critical Radiology Results Reviewed: No Critical Results Discharge - Discharge Clinical Impression: Epigastric abdominal pain Condition: Good Disposition: HOME, SELF-CARE Additional Instructions: Come back immediately for any worsening pain, change in location or quality of pain, fevers or vomiting, or any other acute problems. Please make sure that you follow-up with the primary care physician and washer carcass as discussed. Please start taking Prilosec [id number] once daily until evaluated. Referrals: SARWAT,RUPAL [Primary Care Provider] - Follow up as needed BEREKET SHELLEY MD [ACTIVE STAFF] - Follow up as needed
[2020-05-29] MEDS ORDERED: MAG HYDROX/AL HYDROX/SIMETH SUSP 30 ML UDCUP ONE (08:00)
[2020-05-29] MEDS ORDERED: METOCLOPRAMIDE HCL ORAL SOLN 10 MG/10 ML UDCUP ONE (08:01)
[2020-05-29] MEDS ORDERED: LIDOCAINE 2% VISCOUS SOLN 15 ML UDCUP ONE (08:02)
[2020-05-29 10:13] VITALS: BP 108/61
== END 2020-05-29 10:11 | disposition home or self-care (01) ==
LOC: ER 01:50
DX: R10.13 Epigastric pain (principal); R10.816 Epigastric abdominal tenderness; R11.0 Nausea; Z79.3 Long term (current) use of hormonal contraceptives; Z88.2 Allergy status to sulfonamides; Z91.041 Radiographic dye allergy status
CPT/HCPCS: 99283; 36415; 84703; 85025; 80053; 81001; J3490